=== PATIENT | female | born 1955 | race Caucasian/White ===

== ENCOUNTER 2018-06-07 16:57 | Emergency (ER) | payer OTHER, MEDICARE ==
[~2018-06-07] VITALS: Ht 167.6 cm; Wt 86.2 kg
--- NOTE | 2018-06-07 17:37 | RADIOLOGY REPORT ---
EXAMINATION: XR KNEE, RIGHT CLINICAL INFORMATION: Fall, pain COMPARISON: None TECHNIQUE: Four views of the right knee. FINDINGS: The patient is status post total right knee replacement. There is no evidence of fracture of the prosthesis. There is a 1 mm lucent line between the anterior distal femur and femoral component of the prosthesis. Comparison with prior x-rays is suggested. There is no acute bone fracture. No suprapatellar joint effusion. The soft tissue is unremarkable. IMPRESSION: No acute fracture or dislocation.
--- NOTE | 2018-06-07 18:32 | ED MVC/FALL/TRAUMA COMPLAINT ---
History of Present Illness General Chief Complaint: Laceration Procedure Stated Complaint: LAC TO RT ARM DUE TO FALL Source: patient Exam Limitations: no limitations Vital Signs & Intake/Output Vital Signs & Intake/Output Vital Signs Date Time Temp Pulse Resp B/P B/P Pulse O2 O2 Flow FiO2 Mean Ox Delivery Rate 06/07 1841 98.1 87 16 121/79 99 Room Air 06/07 1701 98.2 92 18 130/85 97 Room Air Room Air Allergies Coded Allergies: No Known Allergies (06/07/18) Triage Note: TRIAGE: 62 Y/O FEMALE PRESENTS S/O SLIP AND FALL DOWN STAIRS. C/O RIGHT FOREARM, RIGHT ANKLE, RIGHT KNEE PAIN AND ABRASIONS. LAC NOTED TO RIGHT FOREARM. * TOOK HYDROCODONE PRIOR TO ARRIVAL. Triage Nurses Notes Reviewed? yes Onset: Abrupt Duration: minute(s):, constant Timing: single episode today Severity: mild, moderate Injuries/Fall Location: upper extremity Method of Injury: fall Loss of Consciousness: no loss of consciousness No Modifying Factors: none HPI: 62-year-old female comes into the emergency room for further evaluation of cuts to her right forearm. Patient reports that she was walking down steps leaving a bridal shower. She admits to having a bloody Jessy. She missed a step and came down on her right knee. She called her arm on the rock wall and cut it. Last tetanus shot unknown. She denies any head trauma. She denies any neck pain. Some associated bleeding. She has a abrasion to her right ankle. (Malachi Cook) Past History Travel History Traveled to [place] past 21 day No Medical History Any Pertinent Medical History? see below for history Neurological: NONE EENT: NONE Cardiovascular: hypertension Psychiatric: anxiety Surgical History Surgical History: non-contributory Psychosocial History What is your primary language [place]amb[place] Tobacco Use: Never used ETOH Use: occasional use Illicit Drug Use: denies illicit drug use Family History Hx Contributory? No (Malachi Cook) Review of Systems Review of Systems Constitutional: Reports: no symptoms. Eyes: Reports: no symptoms. Ears, Nose, Throat, Mouth: Reports: no symptoms. Respiratory: Reports: no symptoms. Cardiovascular: Reports: no symptoms. Gastrointestinal/Abdominal: Reports: no symptoms. Genitourinary: Reports: no symptoms. Musculoskeletal: Reports: no symptoms. Skin: Reports: see HPI. Neurological/Psychological: Reports: no symptoms. All Other Systems: Reviewed and Negative (Malachi Cook) Physical Exam Physical Exam General Appearance: well developed/nourished, no apparent distress, alert, awake Head: atraumatic, normal appearance Eyes: Bilateral: normal appearance. Ears, Nose, Throat, Mouth: hearing grossly normal, moist mucous membrane Neck: normal inspection Respiratory: no respiratory distress Extremities: 2 irregular lacerations that are gaping and the shape to right forearm, some associated bleeding,, skin abrasion the right ankle, full range of motion of right ankle and right foot, no bony tenderness, no soft tissue tenderness, full range of motion of right knee but some soft tissue and point tenderness over proximal tibia/fibula Neurologic/Psych: awake, alert, oriented x 3 Core Measures ACS in differential dx? No CVA/TIA Diagnosis No Sepsis Present: No Sepsis Focused Exam Completed? No (Malachi Cook) Progress Differential Diagnosis: ext injury, soft tissue foreign body, tendon laceration, Plan of Care: see below (Malachi Cook) Departure Departure Disposition: HOME OR SELF CARE Condition: Stable Clinical Impression Primary Impression: Laceration of forearm, right Secondary Impressions: Contusion of right knee Referrals: Unknown (PCP/Family) Additional Instructions: Return in 7-10 days for suture removal. Watch for signs of infection such as redness on discharge fever chills. Please go over all results of today's visit with your primary care doctor. Contact your primary care doctor to let them know you were here in the emergency room. There may be nonspecific findings which may not be related to your visit today here in the emergency room but may require further evaluation and chronic monitoring by your primary care doctor. If you had a laceration today the chance of foreign body always remains. You should follow-up with your primary care doctor for recheck in 3-5 days for a wound check. If you had an x-ray done there is a chance that a fracture could have been missed on initial read and you should follow-up with your primary care doctor for repeat x-rays if symptoms persist. If your blood pressure was elevated here in the emergency room please have rechecked by [facility] primary care doctor within the next 48. If you were prescribed a narcotic here in the emergency room or any type of controlled substances you're not allowed to drive while taking this medication or operate any type of heavy machinery. Narcotics can make you feel lightheaded dizziness nausea and can cause constipation. You may need to picking crew supervisor a stool softener. Thank you for choosing [facility] emergency room. Please return to the emergency room immediately if you have any other concerns worsening of symptoms. Departure Forms: Customer Survey General Discharge Information (Malachi Cook) PA/[employer] Co-Sign Statement Statement: ED Attending supervision documentation- x I saw and evaluated the patient. I have also reviewed all the pertinent lab results and diagnostic results. I agree with the findings and the plan of care as documented in the PA's/[employer]'s documentation. [] I have reviewed the ED Record and agree with the PA's/TECHNICAL [employer]OC's documentation. [] Additions or exceptions (if any) to the PAs/TECHN[employer]OC's note and plan are summarized below: [] (Dom CHU,Glenn) Procedures Laceration/Wound Repair Progress: 2 lacerations to right forearm, both approximately 2 cm, irregular, gaping, skin frayed, irrigated with copious amounts saline, 1% lidocaine, chlorhexidine prep, some debridement of the skin, 4. 0 nylon, multiple sutures placed, bacitracin, dry sterile dressing, patient tolerated procedure well, (Malachi Cook)
[2018-06-07 18:41] VITALS: BP 121/79
== END 2018-06-07 18:42 ==
LOC: ERH 16:57
DX: S51.811A Laceration without foreign body of right forearm, initial encounter (principal); S80.01XA Contusion of right knee, initial encounter; W10.9XXA Fall (on) (from) unspecified stairs and steps, initial encounter; Y92.9 Unspecified place or not applicable; Y93.9 Activity, unspecified; I10 Essential (primary) hypertension; F41.9 Anxiety disorder, unspecified
CPT/HCPCS: 73562-RT; 90471; 90714; J2001